=== PATIENT | female | born 1945 | race Caucasian/White ===

== ENCOUNTER 2024-11-26 21:08 | Emergency (ER) | payer MEDICARE, SELFPAY ==
[2024-11-26 21:18] VITALS: BP 180/75; PULSE 77; TEMP 36.9; O2SAT 98; BMI 28.3
--- NOTE | 2024-11-26 21:29 | XR_ITS ---
The [address] [address] Patient Name: SHAHIDA ARTIS MRN: [id number] date: 1945 Sex: F Assigned Patient Location: ER Current Patient Location: ED.MAIN Accession/Order Number: [id number] Exam Date: 11/26/2024 21:55 Report Date: 11/26/2024 21:57 At the request of: FRED MATTHEWS DO Procedure: XR hand LT min 3V 3 views left hand INDICATION: Swelling COMPARISON: None FINDINGS: Moderate dorsal soft tissue swelling. Mild soft tissue swelling involving the digits. Moderate osteophytic changes involving the DIP joints greatest involving the second there fourth and fifth DIP joints. No fractures or dislocation. No soft tissue calculations. No radiopaque foreign body. XR/XR hand LT min 3V IMPRESSION: Moderate dorsal and soft tissue swelling. Osteoarthritic changes involving the DIP joints. Negative acute osseous abnormality. Impression dictated by: Yohan Plunkett M.D. 11/26/2024 9:57 PM Dictation Location: [place] [address] Electronically authenticated by: [id number] Y Date: 11/26/2024 21:57
--- NOTE | 2024-11-26 22:29 | PC.NURSE ---
Large hematoma dorsum left hand. Good radial pulse
--- NOTE | 2024-11-27 00:05 | ED.GENADUL1 ---
HPI HPI - General Adult General Chief complaint: Extremity Injury, Upper Time Seen by Provider: 11/26/24 22:34 Source: patient Mode of arrival: walk-in Limitations: no limitations History of Present Illness HPI narrative: Patient is an 79-year-old female presenting to the emergency department for concerns of a left hand injury. Patient states that she tripped, fell, and landed on her left hand earlier this morning. A few hours later, she was subsequently stung by bee on her left pinky. Throughout the day today, she has had worsening swelling on the dorsum of the hand. She states it looks bruised and is tender to the touch. She denies overlying warmth, redness, or drainage. She denies any numbness or tingling or weakness in the hand. She denies any other injuries. She is otherwise asymptomatic without chest pain, shortness of breath, abdominal pain, nausea, or vomiting. She is not on anticoagulation. Related Data Home Medications ?Medication ?Instructions ?Recorded ?Confirmed Lipitor 11/26/24 Allergies Allergy/AdvReac Type Severity Reaction Status Date / Time cortisone AdvReac Rash Verified 11/26/24 21:28 Opioid HPI Opioid Management Most Recent Opioid Data: Last Pain Scale 5 11/26/24, 21:18 Review of Systems ROS Status of ROS 10 or more systems reviewed and unremarkable except as noted in history and below PFSH PFSH Social History Little interest or pleasure in doing things: not at all Feeling down, depressed, or hopeless: not at all Exam Narrative Exam Narrative: CONSTITUTIONAL: Well-appearing, answering questions and following commands appropriately SKIN: Was warm and dry. EYES: Sclerae white. EARS, NOSE, THROAT: Moist oral mucosa. RESPIRATORY: Nonlabored respirations without audible stridor or wheezing. CARDIOVASCULAR: Radial pulses 2+ and symmetric. Cap refill less than 3 seconds on the left. GASTROINTESTINAL: Abdomen is nondistended. MUSCULOSKELETAL: There is a moderate-sized hematoma involving the majority of the dorsum of the left hand. There is overlying ecchymosis with mild tenderness to palpation. There is no crepitus. No fluctuance, induration, drainage, or erythema. She has full range of motion in the fingers of the left hand. She has limited legal director strength secondary to restriction from the swelling. NEUROLOGIC: Patient is awake and alert. Intact sensation to light touch in the ulnar/medial/radial distribution of the left hand. facies were symmetrical. Constitutional Vital Signs, click to edit/add: Last Vital Signs Temp 98.4 F 11/26/24 21:18 Pulse 77 11/26/24 21:18 Resp 16 11/26/24 21:18 BP 180/75 H 11/26/24 21:18 Pulse Ox 98 11/26/24 21:18 O2 Del Method Room Air 11/26/24 21:18 Course Vital Signs Vital signs: Vital Signs Temperature 98.4 F 11/26/24 21:18 Pulse Rate 77 11/26/24 21:18 Respiratory Rate 16 11/26/24 21:18 Blood Pressure 180/75 H 11/26/24 21:18 Pulse Oximetry 98 11/26/24 21:18 Oxygen Delivery Method Room Air 11/26/24 21:18 Temperature 98.4 F 11/26/24 21:18 Pulse Rate 77 11/26/24 21:18 Respiratory Rate 16 11/26/24 21:18 Blood Pressure 180/75 H 11/26/24 21:18 Pulse Oximetry 98 11/26/24 21:18 Oxygen Delivery Method Room Air 11/26/24 21:18 Medical Decision Making MDM Narrative Medical decision making narrative: Patient is an 79-year-old female presenting to the emergency department with swelling to the dorsum of the left hand after mechanical fall and a bee sting to the left pinky. Her vital signs are significant for hypertension, otherwise within normal limits. She is afebrile and hemodynamically stable. Examination was consistent with a hematoma on the dorsum of the left hand. There is no overlying cellulitic changes, I have low concern for superimposed infection. She is neurovascularly intact in the hand with good strength, sensation, pulses. She does have limited range of motion with making a fist, though this is likely related to restriction from the swelling. She is not on anticoagulation. I did obtain x-rays to rule out underlying fracture. X-rays of the left hand independently reviewed/interpreted by myself demonstrate no acute osseous abnormalities. There was soft tissue swelling without free air or foreign body. I do believe the patient is stable for discharge at this time. Patient's presentation is most likely consistent with a hematoma, which will likely self resolve with supportive care. They were instructed to follow up with PCP as needed. Return precautions were given including any new or worsening symptoms, including signs of infection such as redness, drainage, or fevers. Patient understands and agrees to the plan. Differential Diagnosis Differential Diagnosis: Left hand hematoma, contusion, fracture Imaging Data hand x ray: Radiologist's impression: ITS Impressions Hand X-Ray 11/26/24 21:29 IMPRESSION: Moderate dorsal and soft tissue swelling. Osteoarthritic changes involving the DIP joints. Negative acute osseous abnormality. Impression dictated by: Yohan Plunkett M.D. 11/26/2024 9:57 PM [facility]ictation [facility] Electronically authenticated by: [id number] Y Date: 11/26/2024 21:57 Discharge Plan Discharge Chief Complaint: Extremity Injury, Upper Clinical Impression: Hematoma of left hand Patient Disposition: Home, Self-Care Time of Disposition Decision: 22:37 Condition: Good Mode of Transportation: Private Vehicle Prescriptions / Home Meds: No Action Lipitor Print Language: Indonesian Instructions: Contusion in Adults (ED) Referrals: Physician,Non-Staff, MD [Primary Care Provider] - 1 week Discharge Date/Time: 11/26/24 22:44
== END 2024-11-26 22:44 | disposition home or self-care (01) ==
PROVIDERS: Emergency Provider Student in an Organized Health Care Education/Training Program
DX: S60.222A Contusion of left hand, initial encounter (principal); M79.642 Pain in left hand; W01.10XA Fall on same level from slipping, tripping and stumbling with subsequent striking against unspecified object, initial encounter; T63.441A Toxic effect of venom of bees, accidental (unintentional), initial encounter; R22.32 Localized swelling, mass and lump, left upper limb
CPT/HCPCS: 73130; 99283